=== PATIENT | male | born 1985 | race African-American/Black ===

== ENCOUNTER 2024-02-25 14:37 | Emergency (ER) | payer OTHER ==
[2024-02-25 14:57] VITALS: BP 145/88; PULSE 84; RESP 16; TEMP 98.5; BMI 21.7
[2024-02-25] MEDS ORDERED: LIDOCAINE 4% PATCH TP ONE (16:24)
[2024-02-25] MEDS ORDERED: METHOCARBAMOL 500 MG TABLET ONE (16:25)
[2024-02-25] MEDS ORDERED: KETOROLAC TROMETHAMINE 30 MG/1 ML VIAL ONE (16:25)
[2024-02-25] MEDS: LIDOCAINE 4% PATCH TP ONE (16:30)
[2024-02-25] MEDS: METHOCARBAMOL 500 MG TABLET PO ONE (16:30)
[2024-02-25] MEDS: KETOROLAC TROMETHAMINE 30 MG/1 ML VIAL IM ONE (16:30)
== END 2024-02-25 17:37 | disposition home or self-care (01) ==
LOC: JER 14:37 → JERFT 14:37
PROC: 3E0233Z Introduction of Anti-inflammatory into Muscle, Percutaneous Approach (ICD-10-PCS; principal; 2024-02-25)
DX: M54.2 Cervicalgia (principal)
CPT/HCPCS: 96372; 99284-25